=== PATIENT | female | born 1990 | race American Indian/Alaskan Native ===

== ENCOUNTER 2019-07-14 04:48 | Emergency (ER) | payer SELFPAY ==
[2019-07-14 05:00] VITALS: BP 143/88
--- NOTE | 2019-07-14 05:32 | Emergency Department Report ---
- General Chief Complaint: Upper Respiratory Infection Stated Complaint: SINUS INFECTION Time Seen by Provider: 07/14/19 05:24 Source: patient Mode of arrival: Ambulatory Limitations: No Limitations - History of Present Illness Initial Comments: Ms Mauricio is a 29 y/o aaf with hx of recurrent sinusitis. pt states noc fever 101, sinus pain yellow drainage. There is ear pain , there is no throat pain. symptoms are exacerbated by activity, symptoms are relieved by nothing. MD Complaint: fever, rhinorrhea, nasal congestion, sinus pain Onset/Timin -: days(s) Severity: moderate Severity scale (0 -10): 4 Quality: other (pressure ) Consistency: constant Improves With: nothing Worsens With: activity Associated Symptoms: fever, chills, rhinorrhea, nasal congestion, ear pain. denies: stiff neck, cough, nausea, vomiting - Related Data Previous Rx's Medication Instructions Recorded Last Taken Type Cyclobenzaprine HCl [Flexeril 5 MG 5 mg PO TID PRN #21 tab 01/31/16 Unknown Rx TAB] Ibuprofen [Motrin 600 MG tab] 600 mg PO Q8H PRN #30 tablet 01/31/16 Unknown Rx Amoxicillin/K Clav Tab [Augmentin 1 tab PO Q12HR 10 Days #20 tab 07/14/19 Unknown Rx 875 mg] Ibuprofen [Motrin 800 MG tab] 800 mg PO Q8HR PRN #30 tablet 07/14/19 Unknown Rx Oxymetazoline HCl [Nasal 2 sprays NS BID 3 Days #1 bottle 07/14/19 Unknown Rx Decongestant] diphenhydrAMINE [Benadryl CAP] 25 mg PO Q8HR PRN #30 capsule 07/14/19 Unknown Rx Allergies Allergy/AdvReac Type Severity Reaction Status Date / Time No Known Allergies Allergy Unverified 01/31/16 11:25 ED Review of Systems ROS: Stated complaint: SINUS INFECTION Other details as noted in HPI Constitutional: chills, fever, malaise Eyes: denies: eye pain, eye discharge, vision change ENT: ear pain, congestion. denies: throat pain Respiratory: denies: cough, shortness of breath, wheezing Cardiovascular: denies: chest pain, palpitations Endocrine: no symptoms reported Gastrointestinal: denies: abdominal pain, nausea, diarrhea Genitourinary: denies: urgency, dysuria, discharge Musculoskeletal: denies: back pain, joint swelling, arthralgia Skin: denies: rash, lesions Neurological: denies: headache, weakness, paresthesias Psychiatric: denies: anxiety, depression Hematological/Lymphatic: denies: easy bleeding, easy bruising ED Past Medical Hx - Past Medical History Previous Medical History?: No - Surgical History Past Surgical History?: No - Social History Smoking Status: Never Smoker Substance Use Type: None - Medications Home Medications: Home Medications Medication Instructions Recorded Confirmed Last Taken Type Cyclobenzaprine HCl [Flexeril 5 MG 5 mg PO TID PRN #21 tab 01/31/16 Unknown Rx TAB] Ibuprofen [Motrin 600 MG tab] 600 mg PO Q8H PRN #30 tablet 01/31/16 Unknown Rx Amoxicillin/K Clav Tab [Augmentin 1 tab PO Q12HR 10 Days #20 tab 07/14/19 Unknown Rx 875 mg] Ibuprofen [Motrin 800 MG tab] 800 mg PO Q8HR PRN #30 tablet 07/14/19 Unknown Rx Oxymetazoline HCl [Nasal 2 sprays NS BID 3 Days #1 bottle 07/14/19 Unknown Rx Decongestant] diphenhydrAMINE [Benadryl CAP] 25 mg PO Q8HR PRN #30 capsule 07/14/19 Unknown Rx ED Physical Exam - General Limitations: No Limitations General appearance: alert, in no apparent distress - Head Head exam: Present: atraumatic, normocephalic - Eye Eye exam: Present: normal appearance, PERRL, EOMI. Absent: conjunctival injection, nystagmus Pupils: Present: normal accommodation - ENT ENT exam: Present: mucous membranes moist - Expanded ENT Exam Expanded Ear exam: Present: normal external inspection TM/Canal exam: Erythema: Right TM, Left TM, Canal Tenderness: Right TM, Left TM Mouth exam: Present: normal external inspection Throat exam: Positive: other (uvula midline no exudate no lesions no stridor no swelling ). Negative: tonsillar erythema, tonsillomegaly, tonsillar exudate - Neck Neck exam: Present: normal inspection, full ROM, lymphadenopathy. Absent: tenderness, meningismus, thyromegaly - Respiratory Respiratory exam: Present: normal lung sounds bilaterally. Absent: respiratory distress, wheezes, stridor, chest wall tenderness - Cardiovascular Cardiovascular Exam: Present: regular rate, normal rhythm, normal heart sounds. Absent: systolic murmur, diastolic murmur, rubs, gallop - GI/Abdominal GI/Abdominal exam: Present: soft, normal bowel sounds. Absent: distended, tenderness, bruit, hernia - Rectal Rectal exam: Present: deferred - Extremities Exam Extremities exam: Present: normal inspection, full ROM, normal capillary refill - Back Exam Back exam: Present: normal inspection, full ROM. Absent: tenderness - Neurological Exam Neurological exam: Present: alert, oriented X3, CN II-XII intact, normal gait, reflexes normal - Psychiatric Psychiatric exam: Present: normal affect, normal mood - Skin Skin exam: Present: warm, dry, intact, normal color. Absent: rash ED Course Vital Signs 07/14/19 04:51 Temperature 97.9 F Pulse Rate 94 H Respiratory 18 Rate Blood Pressure 143/88 O2 Sat by Pulse 100 Oximetry ED Medical Decision Making - Medical Decision Making plan: tx for sinusitis, augmentin,ibuprofen, benadryl, afrin , follow up with ENT , pt verbalized agreement and understanding of discharge plan. Critical care attestation.: If time is entered above; I have spent that time in minutes in the direct care of this critically ill patient, excluding procedure time. ED Disposition Clinical Impression: Sinusitis Qualifiers: Sinusitis location: maxillary Chronicity: acute Recurrence: recurrent Qualified Code(s): J01.01 - Acute recurrent maxillary sinusitis Disposition: TO HOME OR SELFCARE Is pt being admited?: No Does the pt Need Aspirin: No Condition: Stable Instructions: Sinusitis (ED) Prescriptions: Amoxicillin/K Clav Tab [Augmentin 875 mg] 1 tab PO Q12HR 10 Days #20 tab diphenhydrAMINE [Benadryl CAP] 25 mg PO Q8HR PRN #30 capsule PRN Reason: Congestion Ibuprofen [Motrin 800 MG tab] 800 mg PO Q8HR PRN #30 tablet PRN Reason: pain fever . Oxymetazoline HCl [Nasal Decongestant] 2 sprays NS BID 3 Days #1 bottle Referrals: CASSIA SANDY MD [Staff Physician] - 3-5 Days Forms: Work/School Release Form(ED) Time of Disposition: 05:41
== END 2019-07-14 06:25 | disposition home or self-care (01) ==
LOC: ED 04:48
DX: J32.9 Chronic sinusitis, unspecified (principal); Z79.899 Other long term (current) drug therapy

== ENCOUNTER 2019-09-13 07:45 | Emergency (ER) | payer SELFPAY ==
[2019-09-13 07:51] VITALS: BP 126/78
--- NOTE | 2019-09-13 09:53 | Emergency Department Report ---
Chief Complaint: Upper Respiratory Infection Stated Complaint: NOSE CONGESTION/COUGH Time Seen by Provider: 09/13/19 09:26 - HPI History of Present Illness: 29 yo F presents to ED with complaint that her nose is stopped up. Pt states the congestion alternates back and forth from right to left nostril. States she was treated for a sinus infection last week. Reports resolution of the symptoms that she was experiencing at that time, which included yellow nasal drainage, headache. Pt states that currently the nasal drainage is clear, she denies headache, denies fever, denies cough and shortness of breath. - ROS Review of Systems: Comment: All other systems reviewed and negative Constitutional: denies: chills, fever ENT: reports nasal congestion Respiratory: denies cough, shortness of breath Neuro: denies headache Gastrointestinal: denies: nausea, vomiting - Exam Vital Signs: Vital Signs 09/13/19 09/13/19 07:49 08:02 Temperature 98.1 F 98.1 F Pulse Rate 96 H 95 H Respiratory 16 16 Rate Blood Pressure 126/78 126/78 O2 Sat by Pulse 99 99 Oximetry Physical Exam: - General Limitations: No Limitations General appearance: alert, in no apparent distress - Head Head exam: Present: atraumatic, normocephalic - Eye Eye exam: Present: normal appearance, EOMI - ENT ENT exam: Present: mucous membranes moist, no sinus tenderness - Neck Neck exam: Present: normal inspection - Respiratory Respiratory exam: Present: normal lung sounds bilaterally. Absent: respiratory distress - Cardiovascular Cardiovascular Exam: Present: regular rate, normal rhythm - GI/Abdominal GI/Abdominal exam: Present: soft, tenderness (suprapubic and LLQ tenderness). Absent: distended - Extremities Exam Extremities exam: Present: normal inspection - Neurological Exam Neurological exam: Present: alert, oriented X3 - Psychiatric Psychiatric exam: Present: normal affect, normal mood - Skin Skin exam: Present: warm, dry, intact, normal color MSE screening note: Focused history and physical exam performed. Due to findings the following was ordered: 29 yo F w/ nasal congestion. Vitals are normal. She is in no resp distress. Exam is unremarkable. Pt has no emergent medical condition at this time. Outpt f/u advised. Return precautions given. ED Medical Decision Making - Medical Decision Making 29 yo F w/ nasal congestion. Vitals are normal. She is in no resp distress. Exam is unremarkable. Pt has no emergent medical condition at this time. Outpt f/u advised. Return precautions given. ED Disposition for MSE Clinical Impression: Nasal congestion Disposition: MED SCREENING EXAM-LEFT Is pt being admited?: No Condition: Stable Instructions: Cold Symptoms (ED), Upper Respiratory Infection (ED) Referrals: CASSIA SANDY MD [Staff Physician] - as needed PAN HANDLEY MD [Staff Physician] - as needed Time of Disposition: 09:50
== END 2019-09-13 10:15 | disposition left against medical advice (07) ==
LOC: ED 07:45
DX: R09.89 Other specified symptoms and signs involving the circulatory and respiratory systems (principal)
CPT/HCPCS: 99281

== ENCOUNTER 2019-09-16 23:04 | Emergency (ER) | payer SELFPAY ==
[2019-09-17] MEDS ORDERED: IBUPROFEN 600 MG TAB PO ONE (00:03)
[2019-09-17] MEDS ORDERED: predniSONE 20 MG TAB PO ONE (00:03)
--- NOTE | 2019-09-17 00:16 | Emergency Department Report ---
- General Chief Complaint: Upper Respiratory Infection Stated Complaint: CHEST AND NASAL CONGESTION WHEEZING Time Seen by Provider: 09/17/19 00:09 Source: patient Mode of arrival: Ambulatory Limitations: No Limitations - History of Present Illness Initial Comments: Ms. Mauricio is a 29-year-old -[place] female with a history of bronchitis and recurrent sinus infections. Who presents for right lateral chest wall pain exacerbated by cough. Cough is productive yellow thick. Completed antibiotics for sinus infection 2 weeks ago. States symptoms are worsening with occasional wheezing. No wheezing noted at this time patient denies shortness of breath there is no fever no chills. Chest pain described as 6/10 sharp with cough. She states mucus is beginning to get green at this point. And wheezing at bedtime MD Complaint: cough, rhinorrhea Onset/Timin -: week(s) Severity: moderate Severity scale (0 -10): 6 Quality: sharp Consistency: intermittent Improves With: nothing Worsens With: other (cough ) Context: other (recent sinusitis) Associated Symptoms: rhinorrhea, nasal congestion, cough, chest pain. denies: shortness of breath Treatments Prior to Arrival: none - Related Data Previous Rx's Medication Instructions Recorded Last Taken Type Cyclobenzaprine HCl [Flexeril 5 MG 5 mg PO TID PRN #21 tab 01/31/16 Unknown Rx TAB] Ibuprofen [Motrin 600 MG tab] 600 mg PO Q8H PRN #30 tablet 01/31/16 Unknown Rx Amoxicillin/K Clav Tab [Augmentin 1 tab PO Q12HR 10 Days #20 tab 07/14/19 Unknown Rx 875 mg] Ibuprofen [Motrin 800 MG tab] 800 mg PO Q8HR PRN #30 tablet 07/14/19 Unknown Rx Oxymetazoline HCl [Nasal 2 sprays NS BID 3 Days #1 bottle 07/14/19 Unknown Rx Decongestant] diphenhydrAMINE [Benadryl CAP] 25 mg PO Q8HR PRN #30 capsule 07/14/19 Unknown Rx Albuterol INH(or & Nicu Only) 2 puff IH QID PRN #8.5 gram 09/17/19 Unknown Rx [ProAir HFA Inhaler] Benzonatate [Tessalon Perles] 100 mg PO Q8HR PRN #30 capsule 09/17/19 Unknown Rx predniSONE [Deltasone] 40 mg PO QDAY 5 Days #10 tab 09/17/19 Unknown Rx Allergies Allergy/AdvReac Type Severity Reaction Status Date / Time No Known Allergies Allergy Unverified 01/31/16 11:25 ED Review of Systems ROS: Stated complaint: CHEST AND NASAL CONGESTION WHEEZING Other details as noted in HPI Constitutional: malaise. denies: chills, fever Eyes: denies: eye pain, eye discharge, vision change ENT: congestion. denies: ear pain, throat pain Respiratory: cough, wheezing. denies: shortness of breath Cardiovascular: denies: chest pain, palpitations Endocrine: no symptoms reported Gastrointestinal: denies: abdominal pain, nausea, vomiting, diarrhea Genitourinary: denies: urgency, dysuria, discharge Musculoskeletal: denies: back pain, joint swelling, arthralgia Skin: denies: rash, lesions Neurological: denies: headache, vertigo Psychiatric: denies: anxiety, depression Hematological/Lymphatic: denies: easy bleeding, easy bruising ED Past Medical Hx - Past Medical History Previous Medical History?: No - Surgical History Past Surgical History?: No - Social History Smoking Status: Never Smoker Substance Use Type: None - Medications Home Medications: Home Medications Medication Instructions Recorded Confirmed Last Taken Type Cyclobenzaprine HCl [Flexeril 5 MG 5 mg PO TID PRN #21 tab 01/31/16 Unknown Rx TAB] Ibuprofen [Motrin 600 MG tab] 600 mg PO Q8H PRN #30 tablet 01/31/16 Unknown Rx Amoxicillin/K Clav Tab [Augmentin 1 tab PO Q12HR 10 Days #20 tab 07/14/19 Unknown Rx 875 mg] Ibuprofen [Motrin 800 MG tab] 800 mg PO Q8HR PRN #30 tablet 07/14/19 Unknown Rx Oxymetazoline HCl [Nasal 2 sprays NS BID 3 Days #1 bottle 07/14/19 Unknown Rx Decongestant] diphenhydrAMINE [Benadryl CAP] 25 mg PO Q8HR PRN #30 capsule 07/14/19 Unknown Rx Albuterol INH(or & Nicu Only) 2 puff IH QID PRN #8.5 gram 09/17/19 Unknown Rx [ProAir HFA Inhaler] Benzonatate [Tessalon Perles] 100 mg PO Q8HR PRN #30 capsule 09/17/19 Unknown Rx predniSONE [Deltasone] 40 mg PO QDAY 5 Days #10 tab 09/17/19 Unknown Rx ED Physical Exam - General Limitations: No Limitations General appearance: alert - Head Head exam: Present: atraumatic, normocephalic - Eye Eye exam: Present: normal appearance, PERRL, EOMI Pupils: Present: normal accommodation - ENT ENT exam: Present: mucous membranes moist - Neck Neck exam: Present: normal inspection, full ROM. Absent: tenderness - Respiratory Respiratory exam: Present: normal lung sounds bilaterally, chest wall tenderness. Absent: respiratory distress, wheezes, stridor, prolonged expiratory - Cardiovascular Cardiovascular Exam: Present: regular rate, normal rhythm, normal heart sounds. Absent: systolic murmur, diastolic murmur, rubs, gallop - GI/Abdominal GI/Abdominal exam: Present: soft, normal bowel sounds. Absent: tenderness - Rectal Rectal exam: Present: deferred - Extremities Exam Extremities exam: Present: normal inspection, full ROM, normal capillary refill. Absent: tenderness - Back Exam Back exam: Present: normal inspection, full ROM. Absent: tenderness, CVA tenderness (R), CVA tenderness (L) - Neurological Exam Neurological exam: Present: alert, oriented X3, CN II-XII intact, normal gait - Psychiatric Psychiatric exam: Present: normal affect, normal mood - Skin Skin exam: Present: warm ED Medical Decision Making - Radiology Data Radiology results: image reviewed No infiltrates no opacities - Medical Decision Making Chest x-ray is clear no opacities no infiltrates. Plan albuterol inhaler as needed wheezing, prednisone 5-day Tessalon Perles, patient will obtain [id number] ibuprofen as needed for chest wall pain. , Follow-up with primary care follow-up with primary care doctor in 2 to 3 days. Patient discharged home just in stable condition at this time. vital signs noted as Bp: 1444/93, hr: 93, resp:18, temp:99, o2 sat: 97 room air. Critical care attestation.: If time is entered above; I have spent that time in minutes in the direct care of this critically ill patient, excluding procedure time. ED Disposition Clinical Impression: Bronchitis Disposition: DC-01 TO HOME OR SELFCARE Is pt being admited?: No Does the pt Need Aspirin: No Condition: Stable Instructions: Acute Bronchitis (ED) Prescriptions: predniSONE [Deltasone] 40 mg PO QDAY 5 Days #10 tab Albuterol INH(or & Nicu Only) [ProAir HFA Inhaler] 2 puff IH QID PRN #8.5 gram PRN Reason: Shortness Of Breath Benzonatate [Tessalon Perles] 100 mg PO Q8HR PRN #30 capsule PRN Reason: cough Referrals: EAGLE SCHULTZ MD [Staff Physician] - 3-5 Days Forms: Work/School Release Form(ED) Time of Disposition: 01:08
--- NOTE | 2019-09-17 00:59 | XRay Report ---
CHEST 2 VIEWS INDICATION / CLINICAL INFORMATION: Productive cough. Chest wall pain. COMPARISON: None available. FINDINGS: SUPPORT DEVICES: None. HEART / MEDIASTINUM: No significant abnormality. LUNGS / PLEURA: No significant pulmonary or pleural abnormality. No pneumothorax. ADDITIONAL FINDINGS: No significant additional findings. IMPRESSION: 1. No acute abnormality of the chest. Signer Name: Primo Drake MD Signed: 09/17/2019 12:54 AM Workstation Name: [id number]
[2019-09-17 01:35] VITALS: BP 138/78
== END 2019-09-17 01:22 | disposition home or self-care (01) ==
LOC: ED 23:04
DX: J40 Bronchitis, not specified as acute or chronic (principal); Z79.899 Other long term (current) drug therapy
CPT/HCPCS: 71046; 99283; J7512

== ENCOUNTER 2019-12-17 16:35 | Emergency (ER) | payer SELFPAY ==
[2019-12-17 16:40] VITALS: BP 128/68
--- NOTE | 2019-12-17 17:50 | XRay Report ---
CHEST 2 VIEWS INDICATION: cough. COMPARISON: 09/17/2019 FINDINGS: Support devices: None. Heart: Within normal limits. Lungs/Pleura: No acute air space or interstitial disease. No significant pleural effusion. IMPRESSION: No acute findings. Signer Name: Michael Carlisle MD Signed: 12/17/2019 5:46 PM Workstation Name: [id number]
--- NOTE | 2019-12-17 18:17 | Emergency Department Report ---
ED General Adult HPI - General Chief complaint: Upper Respiratory Infection Stated complaint: CP Time Seen by Provider: 12/17/19 17:45 Source: patient Mode of arrival: Ambulatory Limitations: No Limitations - History of Present Illness Initial comments: Patient is a 29-year-old female who presents emergency room with complaints of nasal congestion that began 5 months ago. She states she has associated postnasal drip, cough, chest discomfort after frequent coughing. She states that she has been taking Mucinex, Claritin, Flonase without much relief. She denies any fever, shortness of breath, nausea, vomiting, diarrhea, pleuritic chest pain, sinus pressure. She denies any recent travel, recent surgery, hormone use, sick contacts. She denies any past medical history. She denies any allergies. She states her last menstrual cycle was last month. - Related Data Previous Rx's Medication Instructions Recorded Last Taken Type Cyclobenzaprine HCl [Flexeril 5 MG 5 mg PO TID PRN #21 tab 01/31/16 Unknown Rx TAB] Ibuprofen [Motrin 600 MG tab] 600 mg PO Q8H PRN #30 tablet 01/31/16 Unknown Rx Amoxicillin/K Clav Tab [Augmentin 1 tab PO Q12HR 10 Days #20 tab 07/14/19 Unknown Rx 875 mg] Ibuprofen [Motrin 800 MG tab] 800 mg PO Q8HR PRN #30 tablet 07/14/19 Unknown Rx Oxymetazoline HCl [Nasal 2 sprays NS BID 3 Days #1 bottle 07/14/19 Unknown Rx Decongestant] diphenhydrAMINE [Benadryl CAP] 25 mg PO Q8HR PRN #30 capsule 07/14/19 Unknown Rx Albuterol INH(or & Nicu Only) 2 puff IH QID PRN #8.5 gram 09/17/19 Unknown Rx [ProAir HFA Inhaler] Benzonatate [Tessalon Perles] 100 mg PO Q8HR PRN #30 capsule 09/17/19 Unknown Rx predniSONE [Deltasone] 40 mg PO QDAY 5 Days #10 tab 09/17/19 Unknown Rx Benzonatate [Tessalon Perles] 100 mg PO Q8HR PRN #14 capsule 12/17/19 Unknown Rx Cetirizine HCl [Zyrtec 10mg tab] 10 mg PO DAILY #30 tablet 12/17/19 Unknown Rx Fluticasone [Flonase] 1 spray NS QDAY #1 bottle 12/17/19 Unknown Rx predniSONE [Deltasone] 40 mg PO DAILY 5 Days #10 tablet 12/17/19 Unknown Rx Allergies Allergy/AdvReac Type Severity Reaction Status Date / Time No Known Allergies Allergy Unverified 01/31/16 11:25 ED Review of Systems ROS: Stated complaint: CP Other details as noted in HPI Comment: All other systems reviewed and negative ED Past Medical Hx - Past Medical History Previous Medical History?: No - Surgical History Past Surgical History?: No - Social History Smoking Status: Never Smoker Substance Use Type: Alcohol - Medications Home Medications: Home Medications Medication Instructions Recorded Confirmed Last Taken Type Cyclobenzaprine HCl [Flexeril 5 MG 5 mg PO TID PRN #21 tab 01/31/16 Unknown Rx TAB] Ibuprofen [Motrin 600 MG tab] 600 mg PO Q8H PRN #30 tablet 01/31/16 Unknown Rx Amoxicillin/K Clav Tab [Augmentin 1 tab PO Q12HR 10 Days #20 tab 07/14/19 Unknown Rx 875 mg] Ibuprofen [Motrin 800 MG tab] 800 mg PO Q8HR PRN #30 tablet 07/14/19 Unknown Rx Oxymetazoline HCl [Nasal 2 sprays NS BID 3 Days #1 bottle 07/14/19 Unknown Rx Decongestant] diphenhydrAMINE [Benadryl CAP] 25 mg PO Q8HR PRN #30 capsule 07/14/19 Unknown Rx Albuterol INH(or & Nicu Only) 2 puff IH QID PRN #8.5 gram 09/17/19 Unknown Rx [ProAir HFA Inhaler] Benzonatate [Tessalon Perles] 100 mg PO Q8HR PRN #30 capsule 09/17/19 Unknown Rx predniSONE [Deltasone] 40 mg PO QDAY 5 Days #10 tab 09/17/19 Unknown Rx Benzonatate [Tessalon Perles] 100 mg PO Q8HR PRN #14 capsule 12/17/19 Unknown Rx Cetirizine HCl [Zyrtec 10mg tab] 10 mg PO DAILY #30 tablet 12/17/19 Unknown Rx Fluticasone [Flonase] 1 spray NS QDAY #1 bottle 12/17/19 Unknown Rx predniSONE [Deltasone] 40 mg PO DAILY 5 Days #10 tablet 12/17/19 Unknown Rx ED Physical Exam - General Limitations: No Limitations General appearance: alert, in no apparent distress - Head Head exam: Present: atraumatic, normocephalic - Eye Eye exam: Present: normal appearance - ENT ENT exam: Present: normal orophraynx, mucous membranes moist, other (pale boggy turbinates with clear nasal drainage bilaterally, no erythema, no purulent drainage, no sinus ttp bilaterally) - Respiratory Respiratory exam: Present: normal lung sounds bilaterally. Absent: respiratory distress, wheezes, rales, rhonchi, stridor, chest wall tenderness, accessory muscle use, decreased breath sounds, prolonged expiratory - Cardiovascular Cardiovascular Exam: Present: regular rate, normal rhythm, normal heart sounds. Absent: systolic murmur, diastolic murmur, rubs, gallop - Neurological Exam Neurological exam: Present: alert, oriented X3 - Psychiatric Psychiatric exam: Present: normal affect, normal mood - Skin Skin exam: Present: warm, dry, intact ED Course Vital Signs 12/17/19 16:37 Temperature 98.4 F Pulse Rate 98 H Respiratory 18 Rate Blood Pressure 128/68 O2 Sat by Pulse 100 Oximetry ED Medical Decision Making - Radiology Data Radiology results: report reviewed CHEST 2 VIEWS INDICATION: cough. COMPARISON: 09/17/2019 FINDINGS: Support devices: None. Heart: Within normal limits. Lungs/Pleura: No acute air space or interstitial disease. No significant pleural effusion. IMPRESSION: No acute findings. Signer Name: Michael Carlisle MD Signed: 12/17/2019 5:46 PM Workstation Name: [id number] Transcribed By: ES Dictated By: Michael Carlisle MD Electronically Authenticated By: Michael Carlisle MD Signed Date/Time: 12/17/191745 DD/ 45 TD/TT: - Medical Decision Making Patient is a 29-year-old female who presents emergency room with complaints of nasal congestion that began 5 months ago. She states she has associated postnasal drip, cough, chest discomfort after frequent coughing. She states that she has been taking Mucinex, Claritin, Flonase without much relief. She denies any fever, shortness of breath, nausea, vomiting, diarrhea, pleuritic chest pain, sinus pressure. She denies any recent travel, recent surgery, hormone use, sick contacts. She denies any past medical history. She denies any allergies. She states her last menstrual cycle was last month. Vitals are normal. on exam: pale boggy turbinates with clear nasal drainage bilaterally, no erythema, no purulent drainage, no sinus ttp bilaterally, breath sounds are clear bilaterally, no wheezing, no rales, no rhonchi. CXR: No acute findings. Examination consistent with allergic rhinitis. No signs of sinusitis at this time. Patient states that she has seen an ENT doctor for this and they recommended a balloon procedure but she states her insurance would not cover it and she has not followed up since then. Patient given prescription for Zyrtec, Flonase, prednisone, Tessalon Perles. advised pt to please use medication as prescribed. Please do nasal rinses. May use a humidifier. Follow-up with a ear nose and throat doctor. Follow-up with your primary care doctor to discuss possible referral for allergy testing. Return to the emergency room for any new or worsening symptoms. Critical care attestation.: If time is entered above; I have spent that time in minutes in the direct care of this critically ill patient, excluding procedure time. ED Disposition Clinical Impression: Nasal congestion, Post-nasal drip, Cough Allergic rhinitis Qualifiers: Allergic rhinitis trigger: unspecified Allergic rhinitis seasonality: unspecified Qualified Code(s): J30.9 - Allergic rhinitis, unspecified Disposition: - TO HOME OR SELFCARE Is pt being admited?: No Does the pt Need Aspirin: No Condition: Stable Instructions: Allergic Rhinitis (ED) Additional Instructions: Please use medication as prescribed. Please do nasal rinses. May use a humidifier. Follow-up with a ear nose and throat doctor. Follow-up with your primary care doctor to discuss possible referral for allergy testing. Return to the emergency room for any new or worsening symptoms. Prescriptions: predniSONE [Deltasone] 40 mg PO DAILY 5 Days #10 tablet Fluticasone [Flonase] 1 spray NS QDAY #1 bottle Benzonatate [Tessalon Perles] 100 mg PO Q8HR PRN #14 capsule PRN Reason: cough Cetirizine HCl [Zyrtec 10mg tab] 10 mg PO DAILY #30 tablet Referrals: ISHMAEL GUZMAN MD [Staff Physician] - 3-5 Days CASSIA SANDY MD [Staff Physician] - 3-5 Days PRIMARY CARE, [Primary Care Provider] - 3-5 Days Time of Disposition: 18:15 Print Language: ESTONIAN
== END 2019-12-17 18:27 | disposition home or self-care (01) ==
LOC: ED 16:35
DX: J30.9 Allergic rhinitis, unspecified (principal); R09.81 Nasal congestion; R05 Cough; Z79.1 Long term (current) use of non-steroidal anti-inflammatories (NSAID); Z79.2 Long term (current) use of antibiotics; Z79.899 Other long term (current) drug therapy
CPT/HCPCS: 71046